=== PATIENT | male | born 1955 | race Caucasian/White ===

== ENCOUNTER 2016-08-10 18:38 | Inpatient (IN) | payer OTHER ==
[~2016-08-10] VITALS: Ht 198.1 cm; Wt 110.0 kg
[~2016-08-10 18:38] MED LIST: ACEPHEN325 MG PR; AMANTADINE100 MG PO; ANTI-DIARRHEA2 MG PO; BISA-LAX5 MG PO; CALCIUM 600 +1 EAC3 PO; CYANOCOBAL1000 MCG/2 IM; CYMBALTA60 MG PO; DULCOLAX10 MG PR; FENTANYL1 EAC1 TD; GABAPENTIN300 MG PO; HEPARIN SO5000 UNITS SC; LASIX20 MG PO; MILK OF MAGNESI10 ML PO; MIRALAX17 GM PO; MORPHINE SULFAT15 M1 PO; NEURONTIN100 MG PO; OXYCODONE-APAP1 EACH PO; PERCOCET 10/1 TABLET PO; POLYETHYLENE GL17 GM PO; POTASSIUM CHLO10 MEQ PO; PROMETHAZINE HC25 M1 PO; QUETIAPINE FUMA50 MG PO; SEROQUEL12.5 MG PO; SERTRALINE HCL50 MG PO; SODIUM CHLORIDE1 G1 PO; TRAMADOL HCL50 MG PO; VANCOMYCIN HCL1 GM IV; ZESTRIL2.5 MG PO
[2016-08-10 20:04] LABS: MCH 28.7 PG (29.0-34.0); MCV 89.7 FL (86-99); PLATELET COUNT 136 K/uL (156-360); RBC DIS.WIDTH-CV 15.5 % (11.8-14.6); RBC DIS.WIDTH-SD 50.6 % (39-53); WHITE BLOOD COUNT 4.4 K/uL (4.1-10.2)
[2016-08-10 20:14] LABS: CHLORIDE 108 mEq/L (99-109); POTASSIUM 3.2 mEq/L (3.7-5.4); SODIUM 140 mEq/L (136-147)
[2016-08-10 20:16] LABS: GLUCOSE 114 mg/dL (70-99)
[2016-08-10 20:17] LABS: ANION GAP 11 MEQ/L (2-14)
[2016-08-10 20:19] LABS: GFR ESTIMATE (CALCULATED) > 59 mL/min/; SERUM ETHYL ALCOHOL < 10 mg/dL
[2016-08-10 20:20] LABS: UREA NITROGEN (BUN) 25 mg/dL (9-23)
[2016-08-10 23:28] LABS: AMPHETAMINE NEGATIVE (500 ng/mL); BARBITURATES NEGATIVE (200 ng/mL); BENZODIAZEPINES NEGATIVE (150 ng/mL); COCAINE NEGATIVE (150 ng/mL); METHADONE NEGATIVE (200 ng/mL); METHAMPHETAMINE NEGATIVE (500 ng/mL); OPIATES (MORPHINE) NEGATIVE (100 ng/mL); OXYCODONE PRESUMPTIVE POSITIVE (100 ng/mL); PHENCYCLIDINE NEGATIVE (25 ng/mL); PROPOXYPHENE NEGATIVE (300 ng/mL); THC CANNABINOIDS NEGATIVE (50 ng/mL); TRICYCLIC ANTIDEPRESSANTS NEGATIVE (300 ng/mL)
[2016-08-10 23:29] LABS: INTERNAL CONTROLS VALID? YES
[2016-08-11] MEDS ORDERED: GABAPENTIN600 MG PO (00:55)
[2016-08-11] MEDS ORDERED: LASIX40 MG PO (00:56)
[2016-08-11] MEDS ORDERED: SEROQUEL50 MG PO (00:59)
[2016-08-11] MEDS ORDERED: IPRATROPIU0.2 MG/1 M IH (01:00)
[2016-08-11] MEDS ORDERED: PROVENTIL,2.5 MG/3 M IH (01:00)
[2016-08-11] MEDS ORDERED: DULERA 200 MCG/13 GM IH (01:01)
[2016-08-11] MEDS ORDERED: TOPAMAX50 MG PO (01:02)
[2016-08-11] MEDS ORDERED: TRAMADOL HCL50 MG PO (01:03)
[2016-08-11 02:14] VITALS: BP 120/67
[2016-08-11 07:36] VITALS: BP 105/56
[2016-08-11 16:09] VITALS: BP 106/57
[2016-08-12 08:09] VITALS: BP 98/57
[2016-08-12] MEDS ORDERED: TRAMADOL HCL50 MG PO (09:21)
[2016-08-12] MEDS ORDERED: SERTRALINE HCL50 MG PO (09:21)
== END 2016-08-12 11:04 | DRG 883 ==
LOC: EME → EDBD 18:38 → 1WEST 23:43 → EDOF 23:43 → 1WEST 08-11 01:23
PROVIDERS: Emergency Medicine
DX: F60.89 Other specific personality disorders (principal); R45.850 Homicidal ideations; E87.1 Hypo-osmolality and hyponatremia; F63.9 Impulse disorder, unspecified; F43.10 Post-traumatic stress disorder, unspecified; I10 Essential (primary) hypertension; G89.29 Other chronic pain; E11.9 Type 2 diabetes mellitus without complications; Z87.828 Personal history of other (healed) physical injury and trauma
CPT/HCPCS: 80048; 85027; 90837; 94640; 94640 76; 99202; 99281; 99285; G0480; J1630; J2060